=== PATIENT | female | born 1940 | race Caucasian/White ===

== ENCOUNTER → 2016-05-10 | Outpatient (CLI) | payer OTHER, MEDICAID ==
--- NOTE | 2016-05-12 08:36 | US ---
Duplex arterial Doppler sonography of right leg History: "right leg pain." Technique: Color Doppler and pulsed Doppler were used for interrogation of abdominal aorta, right yessica ac arteries, and arteries of right leg. Findings: Distal abdominal aorta, right iliac arteries, right femoral, popliteal, and trifurcation ar teries of the calf are patent, with normal triphasic waveforms and normal velocity estimates. Minimal scattered atherosclerotic plaque. Impression: Normal.
== END ==
LOC: FIMAGING 11:16
PROVIDERS: ATTEND Internal Medicine Interventional Cardiology
DX: M79.661 Pain in right lower leg (principal)

== ENCOUNTER → 2016-10-10 | Outpatient (CLI) | payer OTHER, MEDICAID | LOC: BHFA 14:15 | PROVIDERS: ATTEND Internal Medicine Interventional Cardiology | DX: I51.7 Cardiomegaly (principal); I48.0 Paroxysmal atrial fibrillation; I10 Essential (primary) hypertension ==

== ENCOUNTER → 2016-10-13 | Outpatient (CLI) | payer OTHER, MEDICAID | LOC: BHLMT 14:00 | PROVIDERS: ATTEND Internal Medicine Cardiovascular Disease | DX: I48.91 Unspecified atrial fibrillation (principal); I10 Essential (primary) hypertension | CPT/HCPCS: 93306-PO ==